=== PATIENT | male | born 1950 | race Caucasian/White ===

== ENCOUNTER 2021-10-01 19:01 | Emergency (ER) | payer OTHER, SELFPAY ==
[2021-10-01 19:11] VITALS: BP 161/76; PULSE 78; RESP 16; TEMP 37.7; O2SAT 93
[2021-10-01 19:28] LABS: Lactate 0.8 mmol/L (0.6-1.4)
[2021-10-01 19:32] LABS: Abs Immature Grans 0.06 10^3/uL (0.0-0.06); Absolute Basophil Count 0.05 10^3/uL (0.0-0.2); Absolute Lymphocyte Count 1.07 10^3/uL (1.2-3.4); Absolute Monocyte Count 0.97 10^3/uL (0.1-0.8); Basophils % 0.3; Eosinophils % 0.2; HCT 39.5 % (40.0-50.0); HGB 12.8 g/dL (13.5-17.5); Immature Grans % 0.4; Lymphocytes % 6.6; MCHC 32.4 % (32.0-36.0); MCV 89.6 fL (80-95); MPV 9.1 fL (8.0-11.0); Neutrophils % 86.5; Nucleated RBC 0 %; Platelet Count 318 10^3/uL (130-400); RBC 4.41 10^6/uL (4.36-5.78); RDW 13.7 % (11.8-14.1); WBC 16.16 10^3/uL (4.4-10.8)
[2021-10-01 19:35] LABS: Absolute Eosinophil Count 0.03 10^3/uL (0.0-0.7); Absolute Neutrophil Count 13.98 10^3/uL (1.2-6.7)
[2021-10-01 19:38] LABS: Bilirubin Negative (Negative); Blood Trace-intact (Negative); Clarity Cloudy (Clear); Glucose Negative (Negative); Ketones Negative (Negative); Leukocyte Esterase Negative (Negative); Nitrite Positive (Negative); Urobilinogen 0.2 EU/dL (Up TO 0.2); pH 7.5 (5-8)
[2021-10-01] MEDS: Normal Saline 1,000 ML 1000 ML IV (19:40)
[2021-10-01 19:43] LABS: Source Nasal/Nares
[2021-10-01 19:44] LABS: Bacteria Many HPF (Negative); C & S Indicated? Yes; Casts Negative LPF (Negative); Crystals Negative HPF (Negative); Epithelial Cells Few HPF (Negative); Mucus Negative (Negative)
[2021-10-01 19:50] LABS: ALT 49 U/L (16-63); AST 32 U/L (15-37); Alkaline Phosphatase 91 U/L (46-116); Anion Gap 11.7 mmol/L (3-11); BUN 15 mg/dL (7-18); Bilirubin, Total 0.9 mg/dL (0.2-1.0); CO2 24.3 mmol/L (21.0-32.0); CREATININE 0.9 mg/dL (0.70-1.30); Calcium 8.8 mg/dL (8.5-10.1); Chloride 103 mmol/L (98-107); Glucose 119 mg/dL (74-106); Potassium 3.6 mmol/L (3.5-5.1); Sodium 139 mmol/L (136-145); Total Protein 7.3 g/dL (6.4-8.2)
[2021-10-01] MEDS: Acetaminophen 325 MG TAB 650 MG PO (19:59)
[2021-10-01 20:23] LABS: COVID-19 PCR Negative (Negative)
[2021-10-01] MEDS: levoFLOXacin 750 MG/150 ML BAG 100 MG IVPB (20:28)
--- NOTE | 2021-10-01 21:06 | ED.GENADUL_ITS ---
Discharge Plan Disposition Patient Disposition: HOME Condition: Improving Discharge Details Clinical Impression: Acute UTI Primary Care Provider: Liu Quesada ED Provider: Rishi Olivares Home Meds and New Rx's Prescriptions: New levofloxacin 750 mg tablet 750 mg PO DAILY Qty: 4 0RF Continued multivitamin Tablet 1 tab PO DAILY 0RF atorvastatin 40 mg Tablet 40 mg PO QHS 0RF amlodipine 5 mg Tablet 5 mg PO DAILY 0RF aspirin 81 mg Tablet 81 mg PO DAILY 0RF paroxetine HCl 40 mg Tablet 50 mg PO DAILY 0RF omega-3 fatty acids-vitamin E 1,000 mg Capsule 1 cap PO DAILY 0RF Lactobacillus acidophilus Tablet,Chewable 1 tab PO DAILY 0RF Discharge Instructions Instructions: Urinary Tract Infection in Men (ED) Additional Instructions: At this time we discussed your presentation with fever, UTI, leukocytosis and you would prefer to be discharged home after receiving IV antibiotics as opposed to admission to our facility. I will provide you a prescription of Levaquin, please take as directed. [id number] Tylenol and/or Motrin as directed for discomfort. Plenty of fluids to avoid dehydration. Please contact your primary care provider tomorrow morning to discuss your ER visit, ongoing symptoms, and need for outpatient reevaluation. Discharge Data Discharge Date/Time-TO BE ENTERED AT DEPARTURE: 10/01/21 22:22 Medical Decision Making This is a 71-year-old, COPD, history of bladder CA, now with a urostomy, presenting to the ER reporting foul-smelling urine, fever over the past 24 hours, T-max of 103.7, and generally not feeling well. Reports decreased p.o. fluid intake over the past 24 hours, concern for dehydration. Did take Tylenol and Motrin earlier in the day. Patient states that he did have a similar UTI presentation previously. Patient does otherwise appears well, nontoxic. Given his age and complicated past medical history plan is to obtain infectious. Will obtain IV access, give IV fluid, and p.o. Tylenol. Laboratory values reviewed leukocytosis 16.16, a normal lactate of 0.8, creatinine 0.9 with a GFR greater than 60. Urinalysis is nitrate positive with nitrates 5-10 white cells, many bacteria. Blood cultures are pending. COVID negative Upon reevaluation patient has responded well to the IV fluid, reports feeling better, no longer febrile. We discussed his likely UTI in the setting of leukocytosis of 16.16, I do feel as though admission is reasonable but patient would prefer to go home. Plan is to give a single dose of IV Levaquin here, provide a prescription for discharge, directed adequate hydration and [id number] Tylenol and Motrin for fever control. Strict discharge and return precautions were provided. Patient and family have no additional questions or concerns and are comfortable discharge. They will contact their medical team at the [facility] tomorrow This documentation was generated using [employer] system, please disregard any oddities of phrase or misspellings. Lab Data Lab results reviewed: Yes I reviewed the patient's lab results. Labs: 10/01/21 19:20 Urine - Reflex from Ua Urine Culture - Final Klebsiella pneumoniae 10/01/21 20:05 Blood Blood Culture - Preliminary NO GROWTH 24 HOURS 10/01/21 19:20 Blood Blood Culture - Preliminary NO GROWTH 24 HOURS Laboratory Tests Range/Units 10/01/21 10/01/21 10/01/21 19:20 19:20 19:20 WBC (4.4-10.8) 10^3/uL 16.16 H RBC (4.36-5.78) 10^6/uL 4.41 Hgb (13.5-17.5) g/dL 12.8 L Hct (40.0-50.0) % 39.5 L MCV (80-95) fL 89.6 MCH (27.0-33.0) pg 29.0 MCHC (32.0-36.0) % 32.4 RDW (11.8-14.1) % 13.7 Plt Count (130-400) 10^3/uL 318 MPV (8.0-11.0) fL 9.1 Immature Gran % 0.4 Neutrophils % 86.5 Lymphocytes % 6.6 Monocytes % 6.0 Eosinophils % 0.2 Basophils % 0.3 Nucleated RBC % % 0 Absolute Neutrophils (1.2-6.7) 10^3/uL 13.98 H Absolute Lymphocytes (1.2-3.4) 10^3/uL 1.07 L Absolute Monocytes (0.1-0.8) 10^3/uL 0.97 H Absolute Eosinophils (0.0-0.7) 10^3/uL 0.03 Absolute Basophils (0.0-0.2) 10^3/uL 0.05 VBG Lactate (0.6-1.4) mmol/L 0.8 Sodium (136-145) mmol/L 139 Potassium (3.5-5.1) mmol/L 3.6 Chloride (98-107) mmol/L 103 Carbon Dioxide (21.0-32.0) mmol/L 24.3 Anion Gap (3-11) mmol/L 11.7 H BUN (7-18) mg/dL 15 Creatinine (0.70-1.30) mg/dL 0.9 Estimated GFR/1.73 m2 (mL/min/1.73m2) >= 60.00 Glucose (74-106) mg/dL 119 H Calcium (8.5-10.1) mg/dL 8.8 Total Bilirubin (0.2-1.0) mg/dL 0.9 AST (15-37) U/L 32 ALT (16-63) U/L 49 Alkaline Phosphatase (46-116) U/L 91 Total Protein (6.4-8.2) g/dL 7.3 Albumin (3.4-5.0) g/dL 4.0 Urine Color (Yellow) Urine Clarity (Clear) Urine pH (5-8) Ur Specific [place] (1.005-1.025) Urine Protein (Negative) mg/dL Urine Ketones (Negative) mg/dL Urine Blood (Negative) Urine Nitrite (Negative) Urine Bilirubin (Negative) Urine Urobilinogen (Up TO 0.2) EU/dL Ur Leukocyte Esterase (Negative) Urine RBC (0-2) HPF Urine WBC (0-5) HPF Ur Epithelial Cells (Negative) HPF Urine Crystals (Negative) HPF Urine Bacteria (Negative) HPF Urine Casts (Negative) LPF Urine Mucus (Negative) Ur Culture Indicated? Urine Glucose (Negative) mg/dL COVID-19 Source SARS-CoV-2 (PCR) (Negative) Range/Units 10/01/21 10/01/21 19:20 19:39 WBC (4.4-10.8) 10^3/uL RBC (4.36-5.78) 10^6/uL Hgb (13.5-17.5) g/dL Hct (40.0-50.0) % MCV (80-95) fL MCH (27.0-33.0) pg MCHC (32.0-36.0) % RDW (11.8-14.1) % Plt Count (130-400) 10^3/uL MPV (8.0-11.0) fL Immature Gran % Neutrophils % Lymphocytes % Monocytes % Eosinophils % Basophils % Nucleated RBC % % Absolute Neutrophils (1.2-6.7) 10^3/uL Absolute Lymphocytes (1.2-3.4) 10^3/uL Absolute Monocytes (0.1-0.8) 10^3/uL Absolute Eosinophils (0.0-0.7) 10^3/uL Absolute Basophils (0.0-0.2) 10^3/uL VBG Lactate (0.6-1.4) mmol/L Sodium (136-145) mmol/L Potassium (3.5-5.1) mmol/L Chloride (98-107) mmol/L Carbon Dioxide (21.0-32.0) mmol/L Anion Gap (3-11) mmol/L BUN (7-18) mg/dL Creatinine (0.70-1.30) mg/dL Estimated GFR/1.73 m2 (mL/min/1.73m2) Glucose (74-106) mg/dL Calcium (8.5-10.1) mg/dL Total Bilirubin (0.2-1.0) mg/dL AST (15-37) U/L ALT (16-63) U/L Alkaline Phosphatase (46-116) U/L Total Protein (6.4-8.2) g/dL Albumin (3.4-5.0) g/dL Urine Color (Yellow) Yellow Urine Clarity (Clear) Cloudy Urine pH (5-8) 7.5 Ur Specific [place] (1.005-1.025) 1.020 Urine Protein (Negative) mg/dL Negative Urine Ketones (Negative) mg/dL Negative Urine Blood (Negative) Trace-intact H Urine Nitrite (Negative) Positive H Urine Bilirubin (Negative) Negative Urine Urobilinogen (Up TO 0.2) EU/dL 0.2 Ur Leukocyte Esterase (Negative) Negative Urine RBC (0-2) HPF 3-5 H Urine WBC (0-5) HPF 5-10 Ur Epithelial Cells (Negative) HPF Few Urine Crystals (Negative) HPF Negative Urine Bacteria (Negative) HPF Many Urine Casts (Negative) LPF Negative Urine Mucus (Negative) Negative Ur Culture Indicated? Yes Urine Glucose (Negative) mg/dL Negative COVID-19 Source Nasal/Nares SARS-CoV-2 (PCR) (Negative) Negative HPI General Mode of arrival: ambulatory . Date/Time Provider Initiated Documentation: 10/01/21 19:19 . Limitations to Documentation: no limitations . Information obtained by: patient and family . History of Present Illness 71 year old M presents to the emergency department with the chief complaint of fever,uti, described as moderate, with intensity rated at 5. Quality is described as other (no pain, fever 103.7), and is localized to the abdomen (Urostomy). Patient reports no radiation. Patient started experiencing this day(s) (1) and it has been constant. improves with Medication improves symptom(s), No exacerbating factors reported . Patient notes fever/chills and nausea/vomiting; denies cough. Patient did receive the following treatments prior to arrival, NSAID Related Data Home Medications Medication Instructions Recorded Confirmed Lactobacillus acidophilus 1 tab PO DAILY 10/01/21 10/01/21 amlodipine 5 mg tablet 5 mg PO DAILY 10/01/21 10/01/21 aspirin 81 mg tablet 81 mg PO DAILY 10/01/21 10/01/21 atorvastatin 40 mg tablet 40 mg PO QHS 10/01/21 10/01/21 levofloxacin 750 mg tablet 750 mg PO DAILY #4 tab 10/01/21 multivitamin 1 tab PO DAILY 10/01/21 10/01/21 omega-3 fatty acids-vitamin E 1 cap PO DAILY 10/01/21 10/01/21 1,000 mg capsule paroxetine HCl 40 mg tablet 50 mg PO DAILY 10/01/21 10/01/21 Previous Rx's Medication Instructions Recorded levofloxacin 750 mg tablet 750 mg PO DAILY #4 tab 10/01/21 Allergies Allergy/AdvReac Type Severity Reaction Status Date / Time bupropion [From Wellbutrin] Allergy Severe Skin Rash Unverified 10/01/21 19:16 varenicline [From Chantix] Allergy Severe Other (See Unverified 10/01/21 19:17 Comment) General Stated Complaint: Urinary JEY: 3 Review of Systems Constitutional Constitutional: Reports fever(s), Denies headache(s) and Reports weakness (Generalized) ENT Ears, Nose, Mouth, and Throat: Denies headache(s) and Denies neck pain Cardiovascular Cardiovascular: Denies chest pain and Denies dyspnea Respiratory Respiratory: Denies cough and Denies dyspnea Gastrointestinal Gastrointestinal: Denies abdominal pain, Denies constipation, Denies diarrhea, Reports nausea and Denies vomiting Genitourinary Genitourinary: Denies hematuria, Denies dysuria and Reports other (Foul- smelling) Musculoskeletal Musculoskeletal: Reports myalgias and Denies neck pain Integumentary/Breasts Skin/Breast: Denies rash Neurologic Neurologic: Denies headache(s) and Reports weakness (Generalized) PFSH All Active Problems Acute UTI (Acute) Medical History Bladder absent Bladder cancer 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 Pt interacts well with pt Exam Const General: cooperative, healthy appearing, comfortable and no acute distress Orientation: alert and awake [facility] Head: normal to inspection, normocephalic and atraumatic Face and sinus: normal facial exam Mouth: moist mucous membranes Eyes General: appearance normal, both eyes and all related structures Conjunctivae: conjunctivae normal Neck Neck: normal visual inspection, full ROM, no meningeal signs, trachea midline and supple Resp Effort & Inspection: normal respiratory effort and able to speak in complete sentences Auscultation: clear to auscultation bilaterally Cardio Rate: regular rate Rhythm: regular rhythm GI Palpation: soft, not firm, no guarding, no pulsatile masses and nontender Auscultation: normal bowel sounds Other: Urostomy and urostomy bag present, yellow urine present. Urostomy appears well and to be functioning normally. Nontender Back/Spine/Pelvis Back: no CVA tenderness and No back tenderness Skin General skin exam: no rashes or lesions noted Neuro General: patient alert, patient awake, moves all extremities and no focal motor deficits Cognition: normal cognition Speech: speech normal Gait: normal gait Sensory Exam: no sensory deficits noted Extrem General: normal to inspection, full ROM and capillary refill normal Psych Appearance: grossly normal Mental Status: mental status grossly normal Course Vital Signs Vital signs: Vital Signs Temperature 37.7 C H 10/01/21 19:11 Pulse 78 10/01/21 19:11 Respiratory Rate 16 10/01/21 19:11 Blood Pressure 161/76 H 10/01/21 19:11 Pulse Oximetry 93 10/01/21 19:11 Temperature 37.7 C H 10/01/21 19:11 Temperature Source Skin 10/01/21 19:11 Pulse 78 10/01/21 19:11 Respiratory Rate 16 10/01/21 19:11 Respiratory Effort 10/01/21 19:24 Blood Pressure 161/76 H 10/01/21 19:11 Pulse Oximetry 93 10/01/21 19:11 Pain Level 4 10/01/21 19:11 Lab/Test Results Lab/Test Results: 10/01/21 20:05 Blood Blood Culture - Pending 10/01/21 19:20 Urine - Reflex from Ua Urine Culture - Pending 10/01/21 19:20 Blood Blood Culture - Pending Laboratory Tests Range/Units 10/01/21 10/01/21 10/01/21 19:20 19:20 19:20 WBC (4.4-10.8) 10^3/uL 16.16 H RBC (4.36-5.78) 10^6/uL 4.41 Hgb (13.5-17.5) g/dL 12.8 L Hct (40.0-50.0) % 39.5 L MCV (80-95) fL 89.6 MCH (27.0-33.0) pg 29.0 MCHC (32.0-36.0) % 32.4 RDW (11.8-14.1) % 13.7 Plt Count (130-400) 10^3/uL 318 MPV (8.0-11.0) fL 9.1 Immature Gran % 0.4 Neutrophils % 86.5 Lymphocytes % 6.6 Monocytes % 6.0 Eosinophils % 0.2 Basophils % 0.3 Nucleated RBC % % 0 Absolute Neutrophils (1.2-6.7) 10^3/uL 13.98 H Absolute Lymphocytes (1.2-3.4) 10^3/uL 1.07 L Absolute Monocytes (0.1-0.8) 10^3/uL 0.97 H Absolute Eosinophils (0.0-0.7) 10^3/uL 0.03 Absolute Basophils (0.0-0.2) 10^3/uL 0.05 VBG Lactate (0.6-1.4) mmol/L 0.8 Sodium (136-145) mmol/L 139 Potassium (3.5-5.1) mmol/L 3.6 Chloride (98-107) mmol/L 103 Carbon Dioxide (21.0-32.0) mmol/L 24.3 Anion Gap (3-11) mmol/L 11.7 H BUN (7-18) mg/dL 15 Creatinine (0.70-1.30) mg/dL 0.9 Estimated GFR/1.73 m2 (mL/min/1.73m2) >= 60.00 Glucose (74-106) mg/dL 119 H Calcium (8.5-10.1) mg/dL 8.8 Total Bilirubin (0.2-1.0) mg/dL 0.9 AST (15-37) U/L 32 ALT (16-63) U/L 49 Alkaline Phosphatase (46-116) U/L 91 Total Protein (6.4-8.2) g/dL 7.3 Albumin (3.4-5.0) g/dL 4.0 Urine Color (Yellow) Urine Clarity (Clear) Urine pH (5-8) Ur Specific [place] (1.005-1.025) Urine Protein (Negative) mg/dL Urine Ketones (Negative) mg/dL Urine Blood (Negative) Urine Nitrite (Negative) Urine Bilirubin (Negative) Urine Urobilinogen (Up TO 0.2) EU/dL Ur Leukocyte Esterase (Negative) Urine RBC (0-2) HPF Urine WBC (0-5) HPF Ur Epithelial Cells (Negative) HPF Urine Crystals (Negative) HPF Urine Bacteria (Negative) HPF Urine Casts (Negative) LPF Urine Mucus (Negative) Ur Culture Indicated? Urine Glucose (Negative) mg/dL COVID-19 Source SARS-CoV-2 (PCR) (Negative) Range/Units 10/01/21 10/01/21 19:20 19:39 WBC (4.4-10.8) 10^3/uL RBC (4.36-5.78) 10^6/uL Hgb (13.5-17.5) g/dL Hct (40.0-50.0) % MCV (80-95) fL MCH (27.0-33.0) pg MCHC (32.0-36.0) % RDW (11.8-14.1) % Plt Count (130-400) 10^3/uL MPV (8.0-11.0) fL Immature Gran % Neutrophils % Lymphocytes % Monocytes % Eosinophils % Basophils % Nucleated RBC % % Absolute Neutrophils (1.2-6.7) 10^3/uL Absolute Lymphocytes (1.2-3.4) 10^3/uL Absolute Monocytes (0.1-0.8) 10^3/uL Absolute Eosinophils (0.0-0.7) 10^3/uL Absolute Basophils (0.0-0.2) 10^3/uL VBG Lactate (0.6-1.4) mmol/L Sodium (136-145) mmol/L Potassium (3.5-5.1) mmol/L Chloride (98-107) mmol/L Carbon Dioxide (21.0-32.0) mmol/L Anion Gap (3-11) mmol/L BUN (7-18) mg/dL Creatinine (0.70-1.30) mg/dL Estimated GFR/1.73 m2 (mL/min/1.73m2) Glucose (74-106) mg/dL Calcium (8.5-10.1) mg/dL Total Bilirubin (0.2-1.0) mg/dL AST (15-37) U/L ALT (16-63) U/L Alkaline Phosphatase (46-116) U/L Total Protein (6.4-8.2) g/dL Albumin (3.4-5.0) g/dL Urine Color (Yellow) Yellow Urine Clarity (Clear) Cloudy Urine pH (5-8) 7.5 Ur Specific [place] (1.005-1.025) 1.020 Urine Protein (Negative) mg/dL Negative Urine Ketones (Negative) mg/dL Negative Urine Blood (Negative) Trace-intact H Urine Nitrite (Negative) Positive H Urine Bilirubin (Negative) Negative Urine Urobilinogen (Up TO 0.2) EU/dL 0.2 Ur Leukocyte Esterase (Negative) Negative Urine RBC (0-2) HPF 3-5 H Urine WBC (0-5) HPF 5-10 Ur Epithelial Cells (Negative) HPF Few Urine Crystals (Negative) HPF Negative Urine Bacteria (Negative) HPF Many Urine Casts (Negative) LPF Negative Urine Mucus (Negative) Negative Ur Culture Indicated? Yes Urine Glucose (Negative) mg/dL Negative COVID-19 Source Nasal/Nares SARS-CoV-2 (PCR) (Negative) Negative
[2021-10-01 22:06] VITALS: BP 101/56; PULSE 53; RESP 18; TEMP 36.5; O2SAT 98
== END 2021-10-01 22:22 | disposition home or self-care (01) ==
PROVIDERS: Emergency Provider Physician Assistant; PCP Anesthesiology
DX: N39.0 Urinary tract infection, site not specified (principal); R50.9 Fever, unspecified; B96.1 Klebsiella pneumoniae [K. pneumoniae] as the cause of diseases classified elsewhere; Z20.822 Contact with and (suspected) exposure to COVID-19; Z93.6 Other artificial openings of urinary tract status
CPT/HCPCS: 80053; 87040; 87077; 87635; 96361; 96365; 99284; 81003; 81015; 83605; 85025; 87086; 87186; J1956

== ENCOUNTER 2022-01-01 10:48 | Emergency (ER) | payer OTHER, SELFPAY ==
[2022-01-01] VITALS (21 sets, daily range): BP systolic 125–142; BP diastolic 52–65; PULSE 46–53; RESP 10–20; TEMP 36.5; O2SAT 96–100
--- NOTE | 2022-01-01 11:22 | W.ED.GENAD ---
Discharge Plan Disposition Patient Disposition: HOME Condition: Stable Discharge Details Clinical Impression: UTI (urinary tract infection) Primary Care Provider: Liu Quesada ED Provider: Rosalva Gutierrez Home Meds and New Rx's Prescriptions: New levofloxacin 750 mg tablet 750 mg PO DAILY 4 Days Qty: 4 0RF Continued multivitamin Tablet 1 tab PO DAILY atorvastatin 40 mg Tablet 40 mg PO QHS amlodipine 5 mg Tablet 5 mg PO DAILY aspirin 81 mg Tablet 81 mg PO DAILY paroxetine HCl 40 mg Tablet 50 mg PO DAILY omega-3 fatty acids-vitamin E 1,000 mg Capsule 1 cap PO DAILY Lactobacillus acidophilus Tablet,Chewable 1 tab PO DAILY Discharge Instructions Instructions: Urinary Tract Infection in Men (ED) Additional Instructions: Drink plenty of fluids and get plenty of rest. Your lab work today revealed that you have a urinary tract or kidney infection. A prescription for antibiotics has been sent electronically to your pharmacy to start tomorrow and to take as directed until finished. Call your urologist at the [facility] tomorrow to schedule a follow-up appointment for reevaluation in the next 1 to 2 weeks. Return immediately to the emergency department if you develop any worsening or new concerning symptoms. Discharge Data Discharge Date/Time-TO BE ENTERED AT DEPARTURE: 01/01/22 14:14 Discharge Physician: Rosalva Gutierrez Medical Decision Making 71-year-old male with a history of hypertension, hyperlipidemia, CABG COPD, tobacco dependence, bladder CA with urostomy, prostatectomy presents for fever for the past 2 days, T-max 102, lethargic and dizzy. Heart rate 50s on arrival which is similar to previous visit a couple months ago. Remainder vitals within normal limits. Patient appears fatigued but otherwise nontoxic. Urostomy bag notes clear yellow urine. Abdomen is otherwise nontender. Differential diagnosis includes UTI, flu, COVID. Patient presentation does not appear consistent with sinus infection, pneumonia. Will place an IV, bolus IV fluids, screening labs, urinalysis, CT renal colic and give Toradol, fluids and reassess. Labs and imaging reviewed. White blood cell count normal at 7. Normal electrolytes including normal creatinine and GFR. Lipase within normal limits. Urinalysis consistent with UTI. Dose of levaquin PO ordered as this is what he was treated with with his UTI in September and he tolerated this well. CT renal colic notes IMPRESSION: 1. Subcentimeter nonobstructing bilateral renal calculi and asymmetric moderate left-sided hydronephrosis. 2. Additional findings as described above. Patient reassessed and he states he feels much better. He remains hemodynamically stable and is afebrile. He appears much more comfortable and would like to go home. Advised to call his urologist at the [facility] for follow-up. Discussed that his presentation appears likely consistent with pyelonephritis considering his fever and urinary tract infection. His previous urine culture in September noted Klebsiella which was sensitive to Levaquin which he states he tolerated well and symptoms completely resolved. Prescription for Levaquin sent electronically to his pharmacy. Usual and customary return precautions given prior to discharge. Medical Records Medical records reviewed: Yes I reviewed the patient's medical records. Imaging Data Radiologic Study: Radiologist's impression: CT Abdomen And Pelvis Without Contrast Exam date and time: 01/01/2022 12:44 PM Age: 71 years old Clinical indication: Condition or disease; Kidney or ureter condition; Calculus (stone) in kidney; Primary cancer: Bladder cancer with urostomy; Prior surgery; Surgery date: 6+ months; Surgery type: Urostomy/removal of bladder TECHNIQUE: Imaging protocol: Computed tomography of the abdomen and pelvis without contrast. COMPARISON: No relevant prior studies available. FINDINGS: Detailed evaluation of the abdominal and pelvic viscera is somewhat limited in the absence of intravenous contrast. Lungs: Emphysematous change, interstitial prominence, and trace airspace disease. Liver: No focal hepatic mass. Gallbladder and bile ducts: Cholelithiasis. Pancreas: No pancreatic mass or ductal dilatation. Spleen: No splenomegaly. 13 mm accessory spleen. Adrenal glands: 1.5 cm left adrenal adenoma. Kidneys and ureters: Subcentimeter nonobstructing bilateral renal calculi and asymmetric moderate left-sided hydronephrosis. Stomach and bowel: Wall thickening in the nondistended proximal stomach. Prominent stool and diverticula, without pericolonic inflammation. Appendix: Status post appendectomy. Intraperitoneal space: No significant free fluid. Vasculature: Vascular calcification. No abdominal aortic aneurysm. Lymph nodes: Subcentimeter lymph nodes. Urinary bladder: Status post cystectomy with diverting ileostomy. Reproductive: Status post prostatectomy. Bones/joints: Osteopenia. Degenerative change, disc bulging, and mild levoscoliosis. Soft tissues: Unremarkable. IMPRESSION: 1. Subcentimeter nonobstructing bilateral renal calculi and asymmetric moderate left-sided hydronephrosis. 2. Additional findings as described above. Lab Data Lab results reviewed: Yes I reviewed the patient's lab results. Labs: 01/01/22 12:15 Urine - Reflex from Ua Urine Culture - Pending 01/01/22 11:48 Blood Blood Culture - Pending 01/01/22 11:40 Blood Blood Culture - Pending Laboratory Tests Range/Units 01/01/22 01/01/22 01/01/22 11:14 11:14 11:16 WBC (4.4-10.8) 10^3/uL 7.73 RBC (4.36-5.78) 10^6/uL 4.61 Hgb (13.5-17.5) g/dL 13.3 L Hct (40.0-50.0) % 41.2 MCV (80-95) fL 89 MCH (27.0-33.0) pg 28.9 MCHC (32.0-36.0) % 32.3 RDW (11.8-14.1) % 13.2 Plt Count (130-400) 10^3/uL 328 MPV (8.0-11.0) fL 8.9 Immature Gran % 0.1 Neutrophils % 62.0 Lymphocytes % 27.0 Monocytes % 8.4 Eosinophils % 1.9 Basophils % 0.6 Nucleated RBC % (0.0-0.3) % 0.0 Absolute Neutrophils (1.2-6.7) 10^3/uL 4.78 Absolute Lymphocytes (1.2-3.4) 10^3/uL 2.09 Absolute Monocytes (0.1-0.8) 10^3/uL 0.65 Absolute Eosinophils (0.0-0.7) 10^3/uL 0.15 Absolute Basophils (0.0-0.2) 10^3/uL 0.05 Sodium (136-145) mmol/L 136 Potassium (3.5-5.1) mmol/L 4.8 Chloride (98-107) mmol/L 102 Carbon Dioxide (21.0-32.0) mmol/L 26.9 Anion Gap (3-11) mmol/L 7.1 BUN (7-18) mg/dL 20 H Creatinine (0.70-1.30) mg/dL 0.9 Estimated GFR/1.73 m2 (mL/min/1.73m2) >= 60.00 Glucose (74-106) mg/dL 143 H Calcium (8.5-10.1) mg/dL 8.8 Total Bilirubin (0.2-1.0) mg/dL 0.7 AST (15-37) U/L 37 ALT (16-63) U/L 35 Alkaline Phosphatase (46-116) U/L 91 Total Protein (6.4-8.2) g/dL 7.2 Albumin (3.4-5.0) g/dL 3.8 Lipase (73-393) U/L 63 Urine Color (Yellow) Urine Clarity (Clear) Urine pH (5-8) Ur Specific [place] (1.005-1.025) Urine Protein (Negative) mg/dL Urine Ketones (Negative) mg/dL Urine Blood (Negative) Urine Nitrite (Negative) Urine Bilirubin (Negative) Urine Urobilinogen (Up TO 0.2) EU/dL Ur Leukocyte Esterase (Negative) Urine RBC (0-2) HPF Urine WBC (0-5) HPF Ur Epithelial Cells (Negative) HPF Urine Crystals (Negative) HPF Urine Bacteria (Negative) HPF Urine Casts (Negative) LPF Urine Mucus (Negative) Ur Culture Indicated? Urine Glucose (Negative) mg/dL COVID-19 Source Nasopharynx SARS-CoV-2 (PCR) (Negative) Negative Influenza Type A (PCR) (Negative) Negative Influenza Type B (PCR) (Negative) Negative RSV (PCR) (Negative) Negative Range/Units 01/01/22 12:15 WBC (4.4-10.8) 10^3/uL RBC (4.36-5.78) 10^6/uL Hgb (13.5-17.5) g/dL Hct (40.0-50.0) % MCV (80-95) fL MCH (27.0-33.0) pg MCHC (32.0-36.0) % RDW (11.8-14.1) % Plt Count (130-400) 10^3/uL MPV (8.0-11.0) fL Immature Gran % Neutrophils % Lymphocytes % Monocytes % Eosinophils % Basophils % Nucleated RBC % (0.0-0.3) % Absolute Neutrophils (1.2-6.7) 10^3/uL Absolute Lymphocytes (1.2-3.4) 10^3/uL Absolute Monocytes (0.1-0.8) 10^3/uL Absolute Eosinophils (0.0-0.7) 10^3/uL Absolute Basophils (0.0-0.2) 10^3/uL Sodium (136-145) mmol/L Potassium (3.5-5.1) mmol/L Chloride (98-107) mmol/L Carbon Dioxide (21.0-32.0) mmol/L Anion Gap (3-11) mmol/L BUN (7-18) mg/dL Creatinine (0.70-1.30) mg/dL Estimated GFR/1.73 m2 (mL/min/1.73m2) Glucose (74-106) mg/dL Calcium (8.5-10.1) mg/dL Total Bilirubin (0.2-1.0) mg/dL AST (15-37) U/L ALT (16-63) U/L Alkaline Phosphatase (46-116) U/L Total Protein (6.4-8.2) g/dL Albumin (3.4-5.0) g/dL Lipase (73-393) U/L Urine Color (Yellow) Yellow Urine Clarity (Clear) Cloudy Urine pH (5-8) 6.5 Ur Specific [place] (1.005-1.025) 1.025 Urine Protein (Negative) mg/dL Trace H Urine Ketones (Negative) mg/dL Negative Urine Blood (Negative) Moderate H Urine Nitrite (Negative) Positive H Urine Bilirubin (Negative) Negative Urine Urobilinogen (Up TO 0.2) EU/dL 0.2 Ur Leukocyte Esterase (Negative) Small H Urine RBC (0-2) HPF 10-20 H Urine WBC (0-5) HPF 20-50 H Ur Epithelial Cells (Negative) HPF Few Urine Crystals (Negative) HPF Negative Urine Bacteria (Negative) HPF Many Urine Casts (Negative) LPF 0-2 Hyaline Urine Mucus (Negative) Negative Ur Culture Indicated? Yes Urine Glucose (Negative) mg/dL Negative COVID-19 Source SARS-CoV-2 (PCR) (Negative) Influenza Type A (PCR) (Negative) Influenza Type B (PCR) (Negative) RSV (PCR) (Negative) HPI General Mode of arrival: ambulatory. Date/Time Provider Initiated Documentation: 01/01/22 11:10. Information obtained by: patient. HPI Narrative: Patient is a 61-year-old male with a history of COPD, hypertension, hyperlipidemia, tobacco dependence, bladder cancer with urostomy, prostatectomy, CABG who presents for fever, lethargy and dizziness. He reports a T-max of 102.3 with blood in his urine Related Data Home Medications Medication Instructions Recorded Confirmed Lactobacillus acidophilus 1 tab PO DAILY 10/01/21 01/01/22 amlodipine 5 mg tablet 5 mg PO DAILY 10/01/21 01/01/22 aspirin 81 mg tablet 81 mg PO DAILY 10/01/21 01/01/22 atorvastatin 40 mg tablet 40 mg PO QHS 10/01/21 01/01/22 multivitamin 1 tab PO DAILY 10/01/21 01/01/22 omega-3 fatty acids-vitamin E 1 cap PO DAILY 10/01/21 01/01/22 1,000 mg capsule paroxetine HCl 40 mg tablet 50 mg PO DAILY 10/01/21 01/01/22 levofloxacin 750 mg tablet 750 mg PO DAILY 4 days #4 tabs 01/01/22 Previous Rx's Medication Instructions Recorded levofloxacin 750 mg tablet 750 mg PO DAILY 4 days #4 tabs 01/01/22 Allergies Allergy/AdvReac Type Severity Reaction Status Date / Time bupropion [From Wellbutrin] Allergy Severe Skin Rash Unverified 01/01/22 11:07 varenicline [From Chantix] Allergy Severe Other (See Unverified 01/01/22 11:07 Comment) General Stated Complaint: Fever JEY: 3 Review of Systems All systems reviewed & are unremarkable except as noted in HPI and below Constitutional Constitutional: Denies chills, Denies excessive sweating, Denies fatigue, Denies fever(s), Denies weakness and Denies weight loss Eyes Eyes: Reports system reviewed and no additional complaints, except as documented and Denies blurry vision ENT Ears, Nose, Mouth, and Throat: Denies vertigo, Denies dizziness, Denies otalgia, Denies nasal congestion, Denies sore throat and Denies throat swelling Cardiovascular Cardiovascular: Denies chest pain, Denies syncope, Denies rapid heart rate and Denies dyspnea Respiratory Respiratory: Denies chest congestion, Denies cough, Denies pain on inspiration and Denies dyspnea Gastrointestinal Gastrointestinal: Denies abdominal pain, Denies diarrhea and Denies vomiting Genitourinary Genitourinary: Denies hematuria, Denies dysuria and Denies flank pain Musculoskeletal Musculoskeletal: Denies back pain and Denies joint swelling Integumentary/Breasts Skin/Breast: Denies lesions and Denies rash Neurologic Neurologic: Denies behavioral changes, Denies confusion, Denies vertigo, Denies dizziness, Denies syncope, Denies localized weakness and Denies weakness Psychiatric Psychiatric: Denies behavioral changes, Denies confusion and Denies depression Endocrine Endocrine: Denies excessive sweating and Denies fatigue Hematologic/Lymphatic Hematologic/Lymphatic: Denies easy bruising and Denies lymphadenopathy Allergic/Immunologic Allergic/Immunologic: Denies throat swelling PFSH All Active Problems (Updated 01/01/22 @ 13:33 by Rosalva Gutierrez DO) UTI (urinary tract infection) (Acute) Medical History Bladder absent Bladder cancer 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 Pt interacts well with pt Exam Const General: cooperative, healthy appearing and no acute distress Orientation: alert, awake and oriented x3 HENMT Head: normal to inspection Ears: hearing grossly normal bilaterally and external ears normal General nose exam: external nose normal Face and sinus: normal facial exam Mouth: oral mucosae normal Teeth and gingiva: dentition normal Throat: posterior oropharynx normal Eyes General: appearance normal, both eyes and all related structures Eyelids: eyelids normal Pupils: PERRL EOM: EOM intact bilaterally Neck Neck: normal visual inspection Lymphatic: no lymphadenopathy noted Chest Chest: normal inspection of the chest Resp Effort & Inspection: normal respiratory effort and able to speak in complete sentences Auscultation: clear to auscultation bilaterally Cardio Rate: bradycardic Rhythm: regular rhythm GI Inspection: normal to inspection Palpation: soft, not firm, no guarding, no hepatosplenomegaly, no masses and nontender Auscultation: normal bowel sounds Other: Urostomy bag noted with clear yellow urine present. Back/Spine/Pelvis Back: no CVA tenderness Skin General skin exam: no rashes or lesions noted Neuro General: patient alert and patient awake Cognition: normal cognition Speech: speech normal Gait: normal gait Motor: muscle tone normal throughout Sensory Exam: no sensory deficits noted Extrem General: normal to inspection, full ROM and capillary refill normal Psych Appearance: grossly normal Mental Status: mental status grossly normal Speech and Movement: speech and movement normal Affect: normal affect Thought Process: normal Course Vital Signs Vital signs: Vital Signs Temperature 97.7 F 01/01/22 11:01 Pulse 53 L 01/01/22 11:01 Respiratory Rate 16 01/01/22 11:01 Blood Pressure 142/53 H 01/01/22 11:01 Pulse Oximetry 98 01/01/22 11:01 Temperature 97.7 F 01/01/22 11:01 Temperature Source Oral 01/01/22 11:01 Pulse 53 L 01/01/22 11:01 Respiratory Rate 16 01/01/22 11:01 Respiratory Effort 01/01/22 11:01 Blood Pressure 142/53 H 01/01/22 11:01 Blood Pressure Position Sitting 01/01/22 11:01 Pulse Oximetry 98 01/01/22 11:01 Oxygen Delivery Method Room Air 01/01/22 11:01 Oxygen Flow Rate 0 01/01/22 11:01 Pain Level 2 01/01/22 11:01 Lab/Test Results Lab/Test Results: 01/01/22 11:10 Blood Blood Culture - Pending 01/01/22 11:10 Blood Blood Culture - Pending
[2022-01-01 11:27] LABS: Abs Immature Grans 0.01 10^3/uL (0.0-0.06); Absolute Basophil Count 0.05 10^3/uL (0.0-0.2); Absolute Eosinophil Count 0.15 10^3/uL (0.0-0.7); Absolute Lymphocyte Count 2.09 10^3/uL (1.2-3.4); Absolute Monocyte Count 0.65 10^3/uL (0.1-0.8); Absolute Neutrophil Count 4.78 10^3/uL (1.2-6.7); Basophils % 0.6; Eosinophils % 1.9; HCT 41.2 % (40.0-50.0); HGB 13.3 g/dL (13.5-17.5); Immature Grans % 0.1; MCH 28.9 pg (27.0-33.0); MCHC 32.3 % (32.0-36.0); MCV 89 fL (80-95); MPV 8.9 fL (8.0-11.0); Monocytes % 8.4; Platelet Count 328 10^3/uL (130-400); RBC 4.61 10^6/uL (4.36-5.78); RDW 13.2 % (11.8-14.1); RDW-SD 43.2 fL; WBC 7.73 10^3/uL (4.4-10.8)
[2022-01-01 11:47] LABS: ALT 35 U/L (16-63); AST 37 U/L (15-37); Albumin 3.8 g/dL (3.4-5.0); Alkaline Phosphatase 91 U/L (46-116); Anion Gap 7.1 mmol/L (3-11); BUN 20 mg/dL (7-18); Bilirubin, Total 0.7 mg/dL (0.2-1.0); CO2 26.9 mmol/L (21.0-32.0); CREATININE 0.9 mg/dL (0.70-1.30); Calcium 8.8 mg/dL (8.5-10.1); Chloride 102 mmol/L (98-107); Glucose 143 mg/dL (74-106); Lipase 63 U/L (73-393); Potassium 4.8 mmol/L (3.5-5.1); Sodium 136 mmol/L (136-145); Total Protein 7.2 g/dL (6.4-8.2)
--- NOTE | 2022-01-01 12:00 | DI.CT_ITS ---
Exam(s) CT RENAL COLIC WO EXAM: CT RENAL COLIC WO CLINICAL HISTORY: h/o bladder cancer with urostomy, fever. TECHNIQUE: Imaging Protocol: Axial computed tomography images with coronal and sagittal reformatted images were created and reviewed CONTRAST MATERIAL: Intravenous: none Oral: None COMPARISON: No exams were available for comparison FINDINGS: VISUALIZED LUNG BASES: Mild infiltrate in the right lung base posterior basal segment right lower lob e. No pleural effusions.. ABDOMEN: There is no ascites. LIVER: There are no obvious focal hepatic lesions evident of this noninfused study. GALLBLADDER/BILIARY: Small gallstones noted. No gallbladder wall edema nor pericholecystic fluid. C BD is not dilated. PANCREAS: No evidence of pancreatic mass nor dilatation of the pancreatic duct. SPLEEN: Spleen is not enlarged. No obvious intrasplenic lesions. ADRENALS: Right adrenal gland unremarkable. Mild thickening of the left adrenal gland KIDNEYS:There is a nonobstructive punctate calculus in the lower pole the right kidney. Few calculi noted in the left kidney. There is left-sided hydronephrosis and hydroureter, with the left ureter d ilated to 9 millimeters in this patient has had prior cystectomy and diverting ileostomy. Dilatation of the left ureter is down to the level of the anastomosis with the right eye ileal loop. There is no calculus at this level. No other focal renal findings.. ABDOMINAL AORTA: Abdominal aorta is not enlarged. LYMPH NODES: There is no retroperitoneal nor paraaortic adenopathy. ABDOMINAL WALL: No evidence of significant anterior abdominal wall nor inguinal hernia. GI: There is no evidence of bowel obstruction, free air, nor abscess. PELVIS: LYMPH NODES: There is no intrapelvic nor inguinal adenopathy. GI: Appendix is surgically absent.No evidence of sigmoid diverticulitis. URINARY BLADDER: Prior cystectomy with diverting ileostomy. REPRODUCTIVE: Prostate surgically absent OSSEOUS: No significant osseous lesions. No fractures. IMPRESSION: 1. In this patient who has had cystectomy, prostatectomy, and diverting ileostomy there are nonobstru ctive calculi in both kidneys. However, there is unilateral left-sided hydronephrosis and hydrourete r. The left ureter diameter is 1 cm and is dilated all the way to the anastomosis with the right ile al loop. There is no radiopaque calculus in the distal aspect of the dilated left ureter. 2. Cholelithiasis. No evidence of acute cholecystitis nor dilatation of the biliary tree. 3. Slight thickening of the left adrenal gland noted, possibly small adenoma. RADIATION DOSE DELIVERED: 633.81mGy.cm Total DLP DATA REPOSITORY: All CT scans at this facility are submitted to the National Radiology Data Registry (NRDR) Dose Index Registry (DIR) with the [employer] ([employer]). RADIATION OPTIMIZATION: All CT scans at this facility use at least one of these dose optimization te chniques: automated exposure control; mA and/or kV adjustment per patient size (includes targeted exa ms where dose is matched to clinical indication); or iterative reconstruction.
[2022-01-01 12:06] LABS: COVID-19 PCR Negative (Negative); Influenza A PCR Negative (Negative); Influenza B PCR Negative (Negative); RSV PCR Negative (Negative)
[2022-01-01 12:22] LABS: Source Nasopharynx
[2022-01-01 12:24] LABS: Bilirubin Negative (Negative); Blood Moderate (Negative); Clarity Cloudy (Clear); Glucose Negative (Negative); Ketones Negative (Negative); Leukocyte Esterase Small (Negative); Nitrite Positive (Negative); Specific Gravity 1.025 (1.005-1.025); Urobilinogen 0.2 EU/dL (Up TO 0.2); pH 6.5 (5-8)
[2022-01-01] MEDS: Normal Saline 1,000 ML 1000 ML IV (12:24)
[2022-01-01] MEDS: Ketorolac 30 MG/ML VIAL IVP (12:24)
[2022-01-01 12:34] LABS: Bacteria Many HPF (Negative); C & S Indicated? Yes; Casts 0-2 Hyaline LPF (Negative); Crystals Negative HPF (Negative); Epithelial Cells Few HPF (Negative); Mucus Negative (Negative); WBC 20-50 HPF (0-5)
[2022-01-01] MEDS: levoFLOXacin 500 MG, levoFLOXacin 250 MG 750 MG PO (13:21)
--- NOTE | 2022-01-01 13:24 | DI.VRAD_ITS ---
PROCEDURE INFORMATION: Preliminary report Exam: CT Abdomen And Pelvis Without Contrast Exam date and time: 01/01/2022 12:44 PM Age: 71 years old Clinical indication: Condition or disease; Kidney or ureter condition; Calculus (stone) in kidney; Primary cancer: Bladder cancer with urostomy; Prior surgery; Surgery date: 6+ months; Surgery type: Urostomy/removal of bladder TECHNIQUE: Imaging protocol: Computed tomography of the abdomen and pelvis without contrast. COMPARISON: No relevant prior studies available. FINDINGS: Detailed evaluation of the abdominal and pelvic viscera is somewhat limited in the absence of intravenous contrast. Lungs: Emphysematous change, interstitial prominence, and trace airspace disease. Liver: No focal hepatic mass. Gallbladder and bile ducts: Cholelithiasis. Pancreas: No pancreatic mass or ductal dilatation. Spleen: No splenomegaly. 13 mm accessory spleen. Adrenal glands: 1.5 cm left adrenal adenoma. Kidneys and ureters: Subcentimeter nonobstructing bilateral renal calculi and asymmetric moderate left-sided hydronephrosis. Stomach and bowel: Wall thickening in the nondistended proximal stomach. Prominent stool and diverticula, without pericolonic inflammation. Appendix: Status post appendectomy. Intraperitoneal space: No significant free fluid. Vasculature: Vascular calcification. No abdominal aortic aneurysm. Lymph nodes: Subcentimeter lymph nodes. Urinary bladder: Status post cystectomy with diverting ileostomy. Reproductive: Status post prostatectomy. Bones/joints: Osteopenia. Degenerative change, disc bulging, and mild levoscoliosis. Soft tissues: Unremarkable. IMPRESSION: 1. Subcentimeter nonobstructing bilateral renal calculi and asymmetric moderate left-sided hydronephrosis. 2. Additional findings as described above. Dictated and Authenticated by: Jeromy Alonzo MD. Ordering:LORENA Blackwell MD
== END 2022-01-01 14:14 | disposition home or self-care (01) ==
PROVIDERS: Emergency Provider Physician Assistant; PCP Anesthesiology
DX: N39.0 Urinary tract infection, site not specified (principal); I10 Essential (primary) hypertension; J44.9 Chronic obstructive pulmonary disease, unspecified; F17.210 Nicotine dependence, cigarettes, uncomplicated; Z20.822 Contact with and (suspected) exposure to COVID-19; Z95.1 Presence of aortocoronary bypass graft
CPT/HCPCS: 36410; 36415; 80053; 83690; 87040; 87637; 96361; 96374; 99284; 74176; 81003; 81015; 85025; 87086; J1885

== ENCOUNTER 2022-03-21 10:08 | Emergency (ER) | payer OTHER, SELFPAY ==
[2022-03-21 10:30] VITALS: BP 126/66; PULSE 67; RESP 16; TEMP 37.2; O2SAT 96
[2022-03-21 11:15] LABS: Source Nasal/Nares
[2022-03-21 11:15] LABS: Abs Immature Grans 0.05 10^3/uL (0.0-0.06); Absolute Basophil Count 0.08 10^3/uL (0.0-0.2); Absolute Eosinophil Count 0.08 10^3/uL (0.0-0.7); Absolute Lymphocyte Count 1.41 10^3/uL (1.2-3.4); Absolute Monocyte Count 1.44 10^3/uL (0.1-0.8); Basophils % 0.5; Eosinophils % 0.5; HCT 38.3 % (40.0-50.0); HGB 12.3 g/dL (13.5-17.5); Immature Grans % 0.3; Lymphocytes % 9.2; MCH 28.5 pg (27.0-33.0); MCHC 32.1 % (32.0-36.0); MCV 89 fL (80-95); MPV 8.3 fL (8.0-11.0); Monocytes % 9.4; Neutrophils % 80.1; Platelet Count 516 10^3/uL (130-400); RBC 4.31 10^6/uL (4.36-5.78); RDW 13.6 % (11.8-14.1); RDW-SD 44.7 fL; WBC 15.35 10^3/uL (4.4-10.8)
[2022-03-21] MEDS: Normal Saline 500 ML IV (11:16)
[2022-03-21] MEDS: Normal Saline Flush 10 ML SYR IVP (11:16)
[2022-03-21 11:19] LABS: Bilirubin Negative (Negative); Blood Moderate (Negative); Clarity Cloudy (Clear); Glucose Negative (Negative); Ketones Negative (Negative); Leukocyte Esterase Moderate (Negative); Nitrite Positive (Negative); Urobilinogen 0.2 EU/dL (Up TO 0.2); pH 7.5 (5-8)
[2022-03-21 11:25] LABS: Bacteria Many HPF (Negative); Crystals Negative HPF (Negative); Epithelial Cells Few HPF (Negative); Mucus Moderate (Negative); WBC >50 HPF (0-5)
[2022-03-21 11:26] LABS: C & S Indicated? Yes; Casts 0-2 Hyaline LPF (Negative)
[2022-03-21 11:33] LABS: ALT 29 U/L (16-63); AST 17 U/L (15-37); Albumin 3.3 g/dL (3.4-5.0); Alkaline Phosphatase 100 U/L (46-116); Anion Gap 8.2 mmol/L (3-11); BUN 18 mg/dL (7-18); Bilirubin, Total 0.7 mg/dL (0.2-1.0); CO2 28.8 mmol/L (21.0-32.0); CREATININE 1.1 mg/dL (0.70-1.30); Calcium 8.9 mg/dL (8.5-10.1); Chloride 100 mmol/L (98-107); Estimated GFR 72.67 (mL/min/1.73m2); Glucose 113 mg/dL (74-106); Sodium 137 mmol/L (136-145); Total Protein 7.5 g/dL (6.4-8.2)
[2022-03-21 12:02] LABS: COVID-19 PCR Negative (Negative)
[2022-03-21] MEDS: diphenhydrAMINE 50 MG/ML VIAL 25 MG IVP (12:20)
[2022-03-21] MEDS: levoFLOXacin 750 MG/150 ML BAG 100 MG IVPB (12:21)
[2022-03-21] MEDS: Normal Saline 1,000 ML 1000 ML IV (12:21)
--- NOTE | 2022-03-21 12:47 | ED.GENADUL_ITS ---
Discharge Plan Disposition Patient Disposition: HOME Condition: Stable Discharge Details Clinical Impression: Acute UTI Primary Care Provider: Liu Quesada ED Provider: Yohannes Gallardo Home Meds and New Rx's Prescriptions: New levofloxacin 750 mg tablet 750 mg PO DAILY 5 Days Qty: 5 0RF Continued multivitamin Tablet 1 tab PO DAILY atorvastatin 40 mg Tablet 40 mg PO QHS amlodipine 5 mg Tablet 5 mg PO DAILY aspirin 81 mg Tablet 81 mg PO DAILY paroxetine HCl 40 mg Tablet 50 mg PO DAILY omega-3 fatty acids-vitamin E 1,000 mg Capsule 1 cap PO DAILY Lactobacillus acidophilus Tablet,Chewable 1 tab PO DAILY Discharge Instructions Instructions: Urinary Tract Infection in Men (ED) Additional Instructions: Please take antibiotics as prescribed and follow-up with urology tomorrow via phone reassessment. If you have any new or significant worsening of symptoms as discussed return to the emergency department for reassessment. It is very important that you get plenty of rest and to stay well-hydrated given high suspicion of kidney infection. Referrals: [facility] [Outside] - 1 day Discharge Data Discharge Date/Time-TO BE ENTERED AT DEPARTURE: 03/21/22 14:24 Medical Decision Making Patient presenting to the emergency department with chief complaint of fever, worsening flank pain, and malaise. Patient states that he recently had a nephro stomy tube placed approximately 2 weeks ago and was seen in follow-up 2 days ago and was fine but then over the last 24 hours has developed worsening symptoms. Physical exam shows a nontoxic appearing male patient with a nephrostomy tube in place. No signs of cellulitis or severe infection surrounding the tube without drainage noted, patient does not produce urine except through urostomy bag and no longer voids due to history of bladder cancer. Exam is otherwise unremarkable. Patient nontoxic in appearance afebrile and normal vital signs but of note patient is patient did have acetaminophen prior to arrival to help with fevers. We will plan on checking labs including urinalysis and touching base with [facility]. Reviewed labs that show a significant leukocytosis with question of shift, urine from urostomy bag does appear significantly infected with positive nitrites and leukocyte esterase with significant number of WBCs. Labs are otherwise nondiagnostic. We will start patient on Rocephin and page urology at [facility]. Pending speaking with urology patient started having significant amount of vomiting 2 minutes after receiving IV Rocephin. Question of allergic reaction so we will stop medication and start patient on Levaquin. Spoke with [facility] [employer] Mrs Sanders. They were in agreement with patient being started on antibiotics. Given that patient is otherwise stable did discuss with urology and patient admission versus discharge home. At this time given that patient is nontoxic in appearance and otherwise stable with no worrisome vital signs will plan to discharge patient home on Levaquin with close follow-up and low threshold for return to emergency department. After discussion of diagnosis and plan of care patient has no further needs, questions, or concerns and states clear understanding to return to the emergency department for any worsening symptoms. This documentation was generated using [employer] [address] dictation system, please disregard any oddities of phrase or misspellings. Lab Data Lab results reviewed: Yes I reviewed the patient's lab results. HPI General Mode of arrival: ambulatory . Date/Time Provider Initiated Documentation: 03/21/22 10:39 . Limitations to Documentation: no limitations . Information obtained by: patient and RN notes reviewed . History of Present Illness 71 year old M presents to the emergency department with the chief complaint of fever and flank pain , described as moderate and similar to prior episodes, with intensity rated at 4. Quality is described as aching, and is localized to the back. Patient reports no radiation. Patient started experiencing this day(s) (1) and it has been constant. No relieving factors improve symptom(s), No exacerbating factors reported . Patient did receive the following treatments prior to arrival, other (Acetaminophen) Related Data Home Medications Medication Instructions Recorded Confirmed Lactobacillus acidophilus 1 tab PO DAILY 10/01/21 03/21/22 amlodipine 5 mg tablet 5 mg PO DAILY 10/01/21 03/21/22 aspirin 81 mg tablet 81 mg PO DAILY 10/01/21 03/21/22 atorvastatin 40 mg tablet 40 mg PO QHS 10/01/21 03/21/22 multivitamin 1 tab PO DAILY 10/01/21 03/21/22 omega-3 fatty acids-vitamin E 1 cap PO DAILY 10/01/21 03/21/22 1,000 mg capsule paroxetine HCl 40 mg tablet 50 mg PO DAILY 10/01/21 03/21/22 levofloxacin 750 mg tablet 750 mg PO DAILY 5 days #5 tabs 09/21/22 Previous Rx's Medication Instructions Recorded levofloxacin 750 mg tablet 750 mg PO DAILY 5 days #5 tabs 03/21/22 Allergies Allergy/AdvReac Type Severity Reaction Status Date / Time bupropion [From Wellbutrin] Allergy Severe Skin Rash Unverified 03/21/22 10:37 ceftriaxone Allergy Unverified 03/21/22 12:31 varenicline [From Chantix] AdvReac Severe can't sleep Unverified 03/21/22 12:35 General Stated Complaint: Urinary JEY: 3 Review of Systems Constitutional Constitutional: Reports chills, Reports fever(s), Denies headache(s) and Reports malaise ENT Ears, Nose, Mouth, and Throat: Denies headache(s), Denies nasal congestion and Denies sore throat Cardiovascular Cardiovascular: Denies chest pain Respiratory Respiratory: Denies cough Gastrointestinal Gastrointestinal: Denies abdominal pain, Denies diarrhea, Denies nausea and Denies vomiting Genitourinary Genitourinary: Reports as per HPI and Reports flank pain Musculoskeletal Musculoskeletal: Reports back pain Integumentary/Breasts Skin/Breast: Denies erythema and Denies rash Neurologic Neurologic: Denies headache(s) PFSH All Active Problems (Updated 03/21/22 @ 13:12 by Yohannes Gallardo NP) Acute UTI (Acute) Medical History Bladder absent Bladder cancer 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 Pt interacts well with pt Exam Const General: cooperative and no acute distress Orientation: alert, awake and oriented x3 Resp Effort & Inspection: normal respiratory effort and able to speak in complete sentences Auscultation: clear to auscultation bilaterally Cardio Rate: regular rate Rhythm: regular rhythm Heart Sounds: S1 normal and S2 normal GI Palpation: soft, not firm, no guarding and nontender Back/Spine/Pelvis Thoracic/Lumbar Spine: other (Nephrostomy tube in place with appropriate dressing) Neuro General: patient alert, patient awake and patient oriented x3 Extrem General: capillary refill normal Course Vital Signs Vital signs: Vital Signs Temperature 37.2 C 03/21/22 10:30 Pulse 67 03/21/22 10:30 Respiratory Rate 16 03/21/22 10:30 Blood Pressure 126/66 03/21/22 10:30 Pulse Oximetry 96 03/21/22 10:30 Temperature 37.2 C 03/21/22 10:30 Pulse 67 03/21/22 10:30 Respiratory Rate 16 03/21/22 10:30 Respiratory Effort 03/21/22 10:38 Blood Pressure 126/66 03/21/22 10:30 Pulse Oximetry 96 03/21/22 10:30 Pain Level 4 03/21/22 10:38 Lab/Test Results Lab/Test Results: 03/21/22 11:25 Blood Blood Culture - Pending 03/21/22 11:05 Urine - Reflex from Ua Urine Culture - Pending 03/21/22 11:02 Blood Blood Culture - Pending Laboratory Tests Range/Units 03/21/22 03/21/22 03/21/22 10:55 11:02 11:02 WBC (4.4-10.8) 10^3/uL RBC (4.36-5.78) 10^6/uL Hgb (13.5-17.5) g/dL Hct (40.0-50.0) % MCV (80-95) fL MCH (27.0-33.0) pg MCHC (32.0-36.0) % RDW (11.8-14.1) % Plt Count (130-400) 10^3/uL MPV (8.0-11.0) fL Immature Gran % Neutrophils % Lymphocytes % Monocytes % Eosinophils % Basophils % Nucleated RBC % (0.0-0.3) % Absolute Neutrophils (1.2-6.7) 10^3/uL Absolute Lymphocytes (1.2-3.4) 10^3/uL Absolute Monocytes (0.1-0.8) 10^3/uL Absolute Eosinophils (0.0-0.7) 10^3/uL Absolute Basophils (0.0-0.2) 10^3/uL VBG Lactate (0.6-1.4) mmol/L 1.0 Sodium (136-145) mmol/L 137 Potassium (3.5-5.1) mmol/L 4.0 Chloride (98-107) mmol/L 100 Carbon Dioxide (21.0-32.0) mmol/L 28.8 Anion Gap (3-11) mmol/L 8.2 BUN (7-18) mg/dL 18 Creatinine (0.70-1.30) mg/dL 1.1 Est GFR (CKD-EPI 2020) (mL/min/1.73m2) 72.67 Glucose (74-106) mg/dL 113 H Calcium (8.5-10.1) mg/dL 8.9 Total Bilirubin (0.2-1.0) mg/dL 0.7 AST (15-37) U/L 17 ALT (16-63) U/L 29 Alkaline Phosphatase (46-116) U/L 100 Total Protein (6.4-8.2) g/dL 7.5 Albumin (3.4-5.0) g/dL 3.3 L Urine Color (Yellow) Urine Clarity (Clear) Urine pH (5-8) Ur Specific [place] (1.005-1.025) Urine Protein (Negative) mg/dL Urine Ketones (Negative) mg/dL Urine Blood (Negative) Urine Nitrite (Negative) Urine Bilirubin (Negative) Urine Urobilinogen (Up TO 0.2) EU/dL Ur Leukocyte Esterase (Negative) Urine RBC (0-2) HPF Urine WBC (0-5) HPF Ur Epithelial Cells (Negative) HPF Urine Crystals (Negative) HPF Urine Bacteria (Negative) HPF Urine Casts (Negative) LPF Urine Mucus (Negative) Ur Culture Indicated? Urine Glucose (Negative) mg/dL COVID-19 Source Nasal/Nares SARS-CoV-2 (PCR) (Negative) Negative Range/Units 03/21/22 03/21/22 11:02 11:05 WBC (4.4-10.8) 10^3/uL 15.35 H RBC (4.36-5.78) 10^6/uL 4.31 L Hgb (13.5-17.5) g/dL 12.3 L Hct (40.0-50.0) % 38.3 L MCV (80-95) fL 89 MCH (27.0-33.0) pg 28.5 MCHC (32.0-36.0) % 32.1 RDW (11.8-14.1) % 13.6 Plt Count (130-400) 10^3/uL 516 H MPV (8.0-11.0) fL 8.3 Immature Gran % 0.3 Neutrophils % 80.1 Lymphocytes % 9.2 Monocytes % 9.4 Eosinophils % 0.5 Basophils % 0.5 Nucleated RBC % (0.0-0.3) % 0.0 Absolute Neutrophils (1.2-6.7) 10^3/uL 12.30 H Absolute Lymphocytes (1.2-3.4) 10^3/uL 1.41 Absolute Monocytes (0.1-0.8) 10^3/uL 1.44 H Absolute Eosinophils (0.0-0.7) 10^3/uL 0.08 Absolute Basophils (0.0-0.2) 10^3/uL 0.08 VBG Lactate (0.6-1.4) mmol/L Sodium (136-145) mmol/L Potassium (3.5-5.1) mmol/L Chloride (98-107) mmol/L Carbon Dioxide (21.0-32.0) mmol/L Anion Gap (3-11) mmol/L BUN (7-18) mg/dL Creatinine (0.70-1.30) mg/dL Est GFR (CKD-EPI 2020) (mL/min/1.73m2) Glucose (74-106) mg/dL Calcium (8.5-10.1) mg/dL Total Bilirubin (0.2-1.0) mg/dL AST (15-37) U/L ALT (16-63) U/L Alkaline Phosphatase (46-116) U/L Total Protein (6.4-8.2) g/dL Albumin (3.4-5.0) g/dL Urine Color (Yellow) Yellow Urine Clarity (Clear) Cloudy Urine pH (5-8) 7.5 Ur Specific [place] (1.005-1.025) 1.020 Urine Protein (Negative) mg/dL 100 H Urine Ketones (Negative) mg/dL Negative Urine Blood (Negative) Moderate H Urine Nitrite (Negative) Positive H Urine Bilirubin (Negative) Negative Urine Urobilinogen (Up TO 0.2) EU/dL 0.2 Ur Leukocyte Esterase (Negative) Moderate H Urine RBC (0-2) HPF 10-20 H Urine WBC (0-5) HPF >50 H Ur Epithelial Cells (Negative) HPF Few Urine Crystals (Negative) HPF Negative Urine Bacteria (Negative) HPF Many Urine Casts (Negative) LPF 0-2 Hyaline Urine Mucus (Negative) Moderate Ur Culture Indicated? Yes Urine Glucose (Negative) mg/dL Negative COVID-19 Source SARS-CoV-2 (PCR) (Negative)
[2022-03-21 14:16] VITALS: BP 134/67; PULSE 64; RESP 18; TEMP 38.3; O2SAT 98
--- NOTE | 2022-04-04 12:21 | NUR.NOTE ---
Nursing Note: Dr. Mercado from the [facility] called requesting the urine culture result from this visit. They were faxed to him.
== END 2022-03-21 14:24 | disposition home or self-care (01) ==
PROVIDERS: Emergency Provider Nurse Practitioner Family; PCP Anesthesiology
DX: N39.0 Urinary tract infection, site not specified (principal); B96.89 Other specified bacterial agents as the cause of diseases classified elsewhere; Z93.6 Other artificial openings of urinary tract status; D72.829 Elevated white blood cell count, unspecified; F17.210 Nicotine dependence, cigarettes, uncomplicated; R11.10 Vomiting, unspecified; T36.1X5A Adverse effect of cephalosporins and other beta-lactam antibiotics, initial encounter
CPT/HCPCS: 36415; 80053; 87040; 87077; 87635; 96361; 96365; 96366; 96375; 99284; 81003; 81015; 83605; 85025; 87086; 87186; J0696; J1200; J1956